=== PATIENT | female | born 1955 | race Caucasian/White ===

== ENCOUNTER 2018-04-28 00:49 | Outpatient (CLI) | payer BC, SELFPAY ==
--- NOTE | 2018-04-28 08:00 | DI.RAD_ITS ---
SYMPTOM/DIAGNOSIS: PAIN OF SACRUM, ? FX, RT HAND PAIN, M25.541 SACRUM AND COCCYX: The lower sacrum and coccyx are partially obscured by overlying stool and bowel gas. No fracture is identified. There is mild spurring at the SI joints. The hip joint spaces are well maintained. IMPRESSION: No acute abnormality. RIGHT HAND: Comparison is made with 07/16/11. There is moderate narrowing of the first metacarpal trapezium joint. There is prominent spurring. There is also mild narrowing and spurring at the scaphoid trapezium trapezoid joints. Mild degenerative changes are seen in the interphalangeal joints of the fingers. The findings have progressed when compared with the 2011 exam. IMPRESSION: Degenerative changes, greatest at the first carpal metacarpal joint.
== END 2018-04-28 01:09 ==
PROVIDERS: PCP Naturopath; Visit Provider Naturopath
DX: M53.3 Sacrococcygeal disorders, not elsewhere classified (principal); M25.541 Pain in joints of right hand; M18.11 Unilateral primary osteoarthritis of first carpometacarpal joint, right hand
CPT/HCPCS: 72220; 73130

== ENCOUNTER 2018-10-17 01:47 | Outpatient (CLI) | payer BC, SELFPAY ==
--- NOTE | 2018-10-17 07:25 | DI.COMBO_ITS ---
SYMPTOM/DIAGNOSIS: GI AND EPIGASTRIC PAIN, DIARRHEA, ? GALLSTONES, SWELLING/LUMP MID STERNUM, ? MASS OR NODULE, R22.2,R19.7,R10.13 PA AND LATERAL CHEST: The heart is normal in size. The lungs are clear. The mediastinal structures and pleura appear intact. CONCLUSION: Normal chest. No evidence of acute cardiopulmonary disease. ABDOMEN ULTRASOUND: The aorta and vena cava are intact. There is some increased echogenicity in the liver suggesting fatty infiltration. The gallbladder is normal. There are no stones or ductal dilatation. The pancreas and spleen are normal. The kidneys are unremarkable, the right kidney measures 8.9 and the left kidney, 10.5 cm. There is no evidence of abdominal free fluid. SUMMARY: Increased echogenicity in the liver would be consistent with fatty infiltration. The study is otherwise unremarkable.
== END 2018-10-17 02:07 ==
PROVIDERS: PCP Naturopath; Visit Provider Naturopath
DX: K76.0 Fatty (change of) liver, not elsewhere classified (principal); R19.7 Diarrhea, unspecified; R10.13 Epigastric pain; R22.2 Localized swelling, mass and lump, trunk
CPT/HCPCS: 71046; 76700

== ENCOUNTER 2018-11-23 00:53 | Outpatient (CLI) | payer BC, SELFPAY ==
--- NOTE | 2018-11-23 10:16 | DI.MAMMO_ITS ---
SYMPTOMS/DIAGNOSIS: SCREENING, Z12.31 MAMMOGRAMS: Mammograms were interpreted according to the usual protocol including computer analysis with CAD system, tomosynthesis and C view imaging. The breasts are heterogeneously dense. No dominant mass or clumped microcalcification is identified in either breast. Current examination is compared with the previous examinations including November 2016 and there is increased prominence of a focal area of asymmetric density projected in the retroareolar portion of the left breast on the MLO view. Additional mammographic views of this area are requested to include an MLO spot compression view of the left breast. CONCLUSION: Additional mammographic views of the left breast requested as described above. Breast ultrasound may be indicated as well depending on the results of the additional mammographic views. Category 0, breast density category C. MQSA ASSESSMENT OF FINDINGS: Incomplete: Needs additional imaging evaluation. Category 0. Patient will receive a letter notifying them of these results. Bi-RADS category C. The breasts are heterogeneously dense, which may obscure small masses.
== END 2018-11-23 01:13 ==
PROVIDERS: PCP Naturopath; Visit Provider Nurse Practitioner Women's Health
DX: Z12.31 Encounter for screening mammogram for malignant neoplasm of breast (principal); R92.8 Other abnormal and inconclusive findings on diagnostic imaging of breast
CPT/HCPCS: 77063; 77067

== ENCOUNTER 2018-12-05 00:29 | Outpatient (CLI) | payer BC, SELFPAY ==
--- NOTE | 2018-12-05 09:30 | DI.COMBO_ITS ---
SYMPTOM/DIAGNOSIS: F/U MAMMO, INCREASED PROMINENCE FOCAL AREA OF ASYMMETRIC DENSITY, LT LEFT BREAST ADDITIONAL VIEWS AND LEFT BREAST ULTRASOUND: Additional images are interpreted according to the usual protocol including tomosynthesis and 2D imaging. A mediolateral compression spot film of the left breast was obtained today. Fibroglandular densities are demonstrated. No discrete mass is seen. At ultrasound, there is no evidence of a mass or cyst. IMPRESSION: No evidence of malignancy, category 1. Yearly screening mammography is recommended. Breast density, Category B. MQSA ASSESSMENT OF FINDINGS: Negative. Category 1. Patient will receive a letter notifying them of these results. BI-RADS category B. There are scattered areas of fibroglandular density.
== END 2018-12-05 00:49 ==
PROVIDERS: PCP Naturopath; Visit Provider Nurse Practitioner Women's Health
DX: Z12.31 Encounter for screening mammogram for malignant neoplasm of breast (principal); R92.8 Other abnormal and inconclusive findings on diagnostic imaging of breast; N64.89 Other specified disorders of breast
CPT/HCPCS: 76642; 77063; 77067

== ENCOUNTER 2020-08-07 03:20 | Outpatient (CLI) | payer BC, SELFPAY ==
--- NOTE | 2020-08-07 10:00 | DI.MAMMO_ITS ---
EXAM: MG MAMMO SCREENING CLINICAL HISTORY: SCREENING, FAMILY H/O BREAST CA,Z12.31 TECHNIQUE: Bilateral full field digital CC and MLO mammographic images were obtained with 3D tomosyn thesis and utilizing computer aided detection (CAD). COMPARISON: Available for comparison. FINDINGS: Masses/Architectural Distortion: None seen. Microcalcifications: No suspicious pleomorphic-type are seen. Skin Thickening/Nipple Retraction: None. IMPRESSION: 1. No significant interval change with no specific features of malignancy noted. 2. Unless there is more urgent need, screening mammography is recommended, as per [employer] guidelines. BI-RADS Category 1 - Negative Breast Density - Category B - Scattered areas of fibroglandular density Breast density category C or D implies that the patient has dense breast tissue. Dense breast tissue is very common and is not abnormal but dense breast tissue can make it harder to find cancer on a ma mmogram. Also, dense breast tissue may increase their breast cancer risk. This information about the result of the mammogram report was provided to the patient to raise their awareness. Use this report when you speak with the patient about their risks for breast cancer, which includes their family hist ory. At that time, you may recommend for more screening tests (Ultrasound or MRI) as they might be us eful based on their risk. A negative radiographic report should not delay biopsy if a dominant or clinically suspicious mass is present. Up to ten percent of cancers are not identified on mammography. A negative report may reinforce clinical impression. Adenosis and dense breasts may obscure an underlying neoplasm. False positive reports average 6 to 10%. Patient will receive a letter notifying them of these results.
== END 2020-08-07 03:40 ==
PROVIDERS: PCP Naturopath; Visit Provider Naturopath
DX: Z12.31 Encounter for screening mammogram for malignant neoplasm of breast (principal); Z80.3 Family history of malignant neoplasm of breast
CPT/HCPCS: 77063; 77067

== ENCOUNTER 2020-10-28 01:51 | Outpatient (CLI) | payer BC, SELFPAY ==
--- NOTE | 2020-10-28 08:34 | DI.RAD_ITS ---
EXAM: XR HIP LT COMPLETE AP PELVIS CLINICAL HISTORY: LT HIP PAIN, M25.552. TECHNIQUE: 2D digital imaging was performed. COMPARISON: No exams were available for comparison FINDINGS: BONES: No acute fracture is present. No bony destructive lesion is seen. JOINTS: No dislocation present. Mild degenerative changes at the sacroiliac joints. SOFT TISSUE: Normal. IMPRESSION: Unremarkable radiographs of the left hip. Mild degenerative changes seen at the sacroiliac joints. DATA REPOSITORY: RADIATION DOSE DELIVERED:
== END 2020-10-28 02:11 ==
PROVIDERS: PCP Naturopath; Visit Provider Naturopath
DX: M25.552 Pain in left hip (principal); M53.3 Sacrococcygeal disorders, not elsewhere classified
CPT/HCPCS: 73502

== ENCOUNTER → 2021-05-28 08:49 | Outpatient (BNVA) | payer MEDICARE, OTHER, SELFPAY | PROVIDERS: PCP Naturopath; Referring Provider Naturopath; Visit Provider Physical Therapy Assistant | DX: Z12.11 Encounter for screening for malignant neoplasm of colon (principal); Z80.0 Family history of malignant neoplasm of digestive organs ==

== ENCOUNTER 2021-05-29 09:37 | Outpatient (REF) | payer MEDICARE, OTHER, SELFPAY ==
[2021-05-29 15:23] LABS: D-Dimer 556 ng/mlFEU (<500)
[2021-05-29 15:38] LABS: ALT 37 U/L (14-59); Anion Gap 9.3 mmol/L (3-11); BUN 18 mg/dL (7-18); CO2 26.7 mmol/L (21.0-32.0); CREATININE 0.9 mg/dL (0.55-1.02); Chloride 105 mmol/L (98-107); Glucose 88 mg/dL (74-106); Potassium 5.1 mmol/L (3.5-5.1); Sodium 141 mmol/L (136-145)
[2021-05-29 16:55] LABS: HCT 45.7 % (36.0-46.0); HGB 14.9 g/dL (11.2-15.7); MCH 29.3 pg (27.0-33.0); MCHC 32.6 % (32.0-36.0); MPV 10.9 fL (8.0-11.0); Platelet Count 241 10^3/uL (130-400); RBC 5.08 10^6/uL (3.93-5.22); RDW 13.2 % (11.7-14.6); RDW-SD 43.8 fL; WBC 4.35 10^3/uL (4.4-10.8)
[2021-06-01 09:25] LABS: Vitamin D 25 Total 40.4 ng/mL (30-100)
== END 2021-05-29 09:38 | disposition home or self-care (01) ==
LOC: NCHCN 09:37
PROVIDERS: PCP Nurse Practitioner Family; Visit Provider Nurse Practitioner Family
DX: E55.9 Vitamin D deficiency, unspecified (principal); K76.0 Fatty (change of) liver, not elsewhere classified; M79.605 Pain in left leg
CPT/HCPCS: 80048; 82306; 85027; 84460; 85379

== ENCOUNTER 2021-06-01 02:54 | Outpatient (CLI) | payer MEDICARE, OTHER, SELFPAY ==
[2021-06-01 10:27] LABS: Source Nasal/Nares
[2021-06-01 12:50] LABS: COVID-19 PCR Negative (Negative)
== END 2021-06-01 02:55 | disposition home or self-care (01) ==
PROVIDERS: PCP Nurse Practitioner Family; Visit Provider Surgery
DX: Z20.822 Contact with and (suspected) exposure to COVID-19 (principal); Z01.818 Encounter for other preprocedural examination
CPT/HCPCS: 87635

== ENCOUNTER 2021-06-03 10:56 | Day surgery (SDC) | payer MEDICARE, OTHER, SELFPAY ==
--- NOTE | 2021-06-03 06:56 | COLE_ITS ---
Colonoscopy Report Date of procedure: 06/03/21 Pre-op diagnosis general: Colon Cancer Screening and genetic propensity for colo n cancer Post-op diagnosis procedure note: same Procedure: Colonoscopy Surgeon: Jami Barreto Anesthesia Type: General:No Airway Estimated blood loss (mL): 0 Pathology: none sent Complications: None Disposition: same day Indications: The patient is here for Colonoscopy pre-op. Her last screening was a number of years ago. She has no family history of colon cancer. 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 She has not had any bowel habit changes. -Discussed colonoscopy bowel prep as well as the procedure. Discussed possible complications of the procedure to include bleeding, pain, perforation, missed small lesion/polyp, sore throat, aspiration and adverse reaction to the medicat ions. Questions were answered to patient?s satisfaction. No guarantees were implied or given. I spent 31 minutes in reviewing the record, seeing the patient, providing patient education, answering patient's questions and documenting in the medical record. P// Colonoscopy under sedation. Prep: Miralax/Dulcolax Retraction Time: 6 minutes Findings: normal colon Procedure Description: After informed consent was obtained the patient was taken to the procedure room and placed in a left decubitous position. Monitors were applied and a time out was done. The patients name, date of , procedure, allergies to medications and metal in their body was reviewed. The patient was then sedated. Once sedated and comfortable a rectal exam was done. External exam was normal. Internal exam revealed a normal sphincter tone and no palpable masses. The scope was then introduced and retro-flexed. No internal hemorrhoids, polyps or masses were identified on retro-flexion. The scope was then advanced to the cecum without difficulty. The ileocecal vlave and appendiceal orifice were identified. The prep was good. The scope was then slowly retracted over 6 minutes back into the rectum. There were no polyps and no diverticulosis. The scope was removed and the patient was woken up and taken back to Same day surgery in stable condition. The patient tolerated the procedure well and there were no immediate complications. Follow up: The patient should follow up in 5 years unless they develop changes in bowel habits or other new gastrointestinal complaints.
--- NOTE | 2021-06-03 06:57 | W.PM.DSUDISC ---
Discharge Plan Disposition Patient Disposition: HOME Condition: Good Discharge Details Reason For Visit: Colonoscopy Attending Provider: Jami Barreto Primary Care Provider: Becka Leonard Home Meds and New Rx's Prescriptions: Continued coenzyme Q10 [Co Q-10] 10 mg capsule 10 mg PO ONCE RF: 0 aspirin [Adult Aspirin Regimen] 81 mg tablet,delayed release (DR/EC) 81 mg PO ONCE PRNRF: 0 cholecalciferol (vitamin D3) [Vitamin D3] 400 UNIT capsule 400 unit PO DAILY RF: 0 Digestive Advantage Probio-Pre 800 million cell tablet 800 cell PO DAILY RF: 0 omega-3 fatty acids 1,000 mg capsule 1,000 mg PO DAILY RF: 0 turmeric 400 mg Capsule 400 mg PO DAILY RF: 0 Discontinued bisacodyl [Dulcolax (bisacodyl)] 5 mg tablet,delayed release (DR/EC) 5 mg PO ONCE Qty: 4 RF: 0 polyethylene glycol 3350 17 gram/dose powder 17 g PO ONCE Qty: 238 RF: 0 Discharge Instructions Additional Instructions: Findings: normal colon Follow up: 10 years Please call if you develop: fevers >101.5 Nausea or Vomiting Abdominal pain that is not transient Rectal bleeding that is more then a tbsp A hard abdomen and inability to pass gas DAY SURGERY UNIT POST ENDOSCOPY INSTRUCTIONS Instructions for everyone who is given Anesthesia: For your safety, please do the following for the next 24 Hours: a. Do not drive or operate dangerous equipment b. Do not drink alcohol beverages or use any recreational drugs for the first 24 hours or while taking pain medications. The medications in your body may have a reaction that can be dangerous. c. Do not make any important decisions or sign any important papers 1. Generally there are no restrictions on your activity after a day or so has gone by, but you may feel a bit fatigued for a few days. 2. After you arrive home you may have a light meal and return to a normal diet as you can tolerate it without feeling sick to your stomach. 3. After surgery, you may feel pain or discomfort. This should be only transient, but if it persists please contact your doctor. 4. If there are any questions regarding the findings of your procedure, please feel free to contact your doctor. 6. If you are unable to contact your doctor with a problem, contact the hospital at [phone]. 7. Continue all your regular medications unless directed otherwise. I understand the above instructions and have no questions. Signature of Patient or Responsible Adult Escort Date/Time Name of Responsible Adult Escort Signature of Nurse Date/Time Activity:: Activity as Tolerated Diet:: As Tolerated Discharge Orders Discharge Orders: Discharge Order (Routine); Ordered 06/03/21 Ordered By: Jami Barreto
--- NOTE | 2021-06-03 07:35 | W.ANESPRE ---
General Info Date of Service Date Performed: 06/03/21 Height: 5 ft 8 in Weight: 88.167 kg Body Mass Index (BMI): 29.5 Surgical Procedure: Operation Date: 06/03/21 12:05 Proposed Procedures Side Surgeon p Colonoscopy Jami Barreto MD Meds Allergies and Home Medications Allergies Allergy/AdvReac Type Severity Reaction Status Date / Time No Known Allergies Allergy Unverified 06/03/21 11:09 Home Medication Medication Instructions Recorded cholecalciferol (vitamin D3) 400 unit PO DAILY 12/03/13 [Vitamin D3] Bacillus coagulans 800 million 800 cell PO DAILY 05/07/21 cell tablet omega-3 fatty acids 1,000 mg 1,000 mg PO DAILY 05/07/21 capsule aspirin 81 mg tablet,delayed 81 mg PO ONCE PRN tab 05/28/21 release bisacodyl 5 mg tablet,delayed 5 mg PO ONCE #4 tab 05/28/21 release coenzyme Q10 10 mg capsule 10 mg PO ONCE 05/28/21 polyethylene glycol 3350 17 17 g PO ONCE #238 g 05/28/21 gram/dose oral powder turmeric 400 mg PO DAILY 06/03/21 Current Visit Medications: Current Medications Generic Name Dose Route Start Last Admin Trade Name Freq PRN Reason Stop Dose Admin Hyoscyamine Sulfate 0.125 mg 06/03/21 06:57 Hyoscyamine 0.125 Mg Sl/Oral/Chew SL DIRECTED PRN Ringer's Solution 1,000 mls @ 80 mls/hr 06/03/21 06:00 IV 06/16/21 23:59 [facility] IV Miscellaneous Supplies 1 each 06/03/21 06:00 Iv Access IV 06/16/21 23:59 DIRECTED REYNALDO Ondansetron HCl 4 mg 06/03/21 06:57 Ondansetron 4 Mg/2 Ml Vial IVP Q4H PRN PRN Nausea / Vomiting Sodium Chloride 0 ml 06/03/21 06:00 Normal Saline Flush 10 Ml Syr IV 06/16/21 23:59 PRN PRN Sodium Chloride 0 ml 06/03/21 06:00 Normal Saline 10 Ml Vial IJ 06/16/21 23:59 DIRECTED PRN Sterile Water 0 ml 06/03/21 06:00 Water,Injection,Sterile 10 Ml Vial IJ 06/16/21 23:59 DIRECTED PRN PFSH Active Problems Active Problems: Problem Status Onset Code Thyroid nodule E04.1 Screening for colon cancer Z12.11 Medical History Active Problem List Thyroid nodule (Acute) Screening for colon cancer (Acute) Medical History ? 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 Tobacco Smoking/Tobacco Use Status: Never Alcohol Alcohol Intake: current Alcohol intake frequency: 0-2 drinks per day Alcohol type: beer and hard liquor Substance Use Substance use type: does not use Vital Signs and Lab Results Lab Results Blood Type / Crossmatch: No Data to Display Complete Blood Count: White Blood Count 4.35 10^3/uL (4.4-10.8) L 05/29/21 09:10 05/29/21 Red Blood Count 5.08 10^6/uL (3.93-5.22) 05/29/21 09:10 05/29/21 Hemoglobin 14.9 g/dL (11.2-15.7) 05/29/21 09:10 05/29/21 Hematocrit 45.7 % (36.0-46.0) 05/29/21 09:10 05/29/21 Platelet Count 241 10^3/uL (130-400) 05/29/21 09:10 05/29/21 Complete Metabolic Panel: Sodium Level 141 mmol/L (136-145) 05/29/21 09:10 05/29/21 Potassium Level 5.1 mmol/L (3.5-5.1) 05/29/21 09:10 05/29/21 Chloride Level 105 mmol/L (98-107) 05/29/21 09:10 05/29/21 Carbon Dioxide Level 26.7 mmol/L (21.0-32.0) 05/29/21 09:10 05/29/21 Blood Urea Nitrogen 18 mg/dL (7-18) 05/29/21 09:10 05/29/21 Creatinine 0.9 mg/dL (0.55-1.02) 05/29/21 09:10 05/29/21 Estimated GFR/1.73 m2 >= 60.00 (mL/min/1.73m2) 05/29/21 09:10 05/29/21 Calcium Level 9.0 mg/dL (8.5-10.1) 05/29/21 09:10 05/29/21 Glucose Level 88 mg/dL (74-106) 05/29/21 09:10 05/29/21 Liver Function Panel: Alanine Aminotransferase (ALT/SGPT) 37 U/L (14-59) 05/29/21 09:10 05/29/21 Coagulation Panel: D-Dimer 556 ng/mlFEU (<500) H 05/29/21 09:10 05/29/21 Cardiac Panel: No Data to Display Arterial Blood Gas: No Data to Display Venous Blood Gas: No Data to Display Pancreas Panel: No Data to Display Thyroid Panel: No Data to Display Infectious Disease: Coronavirus (COVID-19)(PCR) Negative (Negative) 06/01/21 10:27 06/01/21 Coronavirus 2019 Source Nasal/Nares 06/01/21 10:27 06/01/21 Blood Cultures: No Data to Display Toxicology Panel: No Data to Display Imaging and Studies Imaging and Studies Stress Test Summary: Impressions: - Normal study after maximal exercise. - Low risk of cardiac events. Summary: 1. Stress ECG conclusions: The stress ECG is negative. 2. Stress: The target heart rate was achieved. The heart rate response to stress is normal. There is a normal resting blood pressure with an appropriate response to stress. The patient experienced no chest pain during stress. Exercise capacity is above normal for age. 3. Baseline ECG: Normal sinus rhythm with 1degrees AV block. Anesthesia Assessment and Plan Anesthesia History Personal History: No History of Anesthesia Complications Family History: No Family History of Anesthesia Complications Exercise Tolerance Exercise Tolerance: Metabolic Equivalents>4 Pertinent Negatives Pertinent Negatives: No Symptoms of GERD, No Major Cardiovascular Symptoms or Complaints, No Major Pulmonary Symptoms or Complaints and No History of CVA/TIA Cardiac & Pulmonary Exam Cardiac Exam: Normal S1/S2 Heart Sounds Pulmonary Exam: Clear Bilateral Breath Sounds Implantable Cardiac Device Does patient have a Pacemaker or an ICD?: No Airway Exam Known Difficult Airway: No Mallampati Class: 3 Mouth Opening: Normal (> 3cm) Thyromental Distance: Greater than 3 cm Neck Range of Motion: Limited ROM Neck Circumference: Normal Teeth Condition: Generalized Poor Dentition ASA Classification ASA Score: ASA 2 Emergency Case?: No NPO Status NPO Status: NPO Clears >2 hours, Solids >8 hours Anesthesia Plan Resuscitation Status: Full Code Anesthesia Technique: General Anesthesia Airway Planned: Natural Airway Monitors Used: Standard Monitors
[2021-06-03 11:17] VITALS: BP 116/92; PULSE 96; RESP 16; TEMP 36.9; O2SAT 98
[2021-06-03] MEDS: Lactated Ringers 1,000 ML 80 ML IV (11:43)
[2021-06-03 11:49] VITALS: BMI 29.5
[2021-06-03 12:42] VITALS: BP 125/65; PULSE 83; RESP 18; TEMP 36.1; O2SAT 97
--- NOTE | 2021-06-03 13:09 | W.ANESPOSTOP ---
Postoperative Evaluation Date, Time and Location Date Performed: 06/03/21 Time Performed: 12:42 Patient Location: Day Surgery Unit Vital Signs Most Recent Imported Vital Signs: Most Recent Vital Signs Temp Pulse Resp BP Pulse Ox 36.1 C L 83 18 125/65 97 06/03/21 12:42 06/03/21 12:42 06/03/21 12:42 06/03/21 12:42 06/03/21 12:42 Pain Score Most Recent Pain Score: Most Recent Pain Score Pain Level 0 06/03/21 12:42 Assessment Mental Status: Awake (Alert & Oriented to Patient Baseline) Airway and Respiratory Function: Patent airway with normal (patient baseline) respiratory exam Cardiovascular Function: Hemodynamically Stable Hydration Status: Adequately Hydrated Nausea & Vomiting: No Nausea or Vomiting Pain: Pt. Denies Any Pain Peripheral Nerve Block: Patient did not receive a nerve block
[2021-06-03 13:10] VITALS: BP 122/83; PULSE 68; RESP 18; TEMP 36.2; O2SAT 98
== END 2021-06-03 13:30 | disposition home or self-care (01) ==
LOC: SUR 10:57
PROVIDERS: PCP Nurse Practitioner Family; Visit Provider Surgery
PROC: 0DJD8ZZ Inspection of Lower Intestinal Tract, Via Natural or Artificial Opening Endoscopic (ICD-10-PCS; CPT 45378; principal; 2021-06-03 12:00)
DX: Z12.11 Encounter for screening for malignant neoplasm of colon (principal); Z15.09 Genetic susceptibility to other malignant neoplasm
CPT/HCPCS: G0121

== ENCOUNTER 2021-08-10 01:59 | Outpatient (CLI) | payer MEDICARE, OTHER, SELFPAY ==
--- NOTE | 2021-08-10 06:45 | DI.MAMMO_ITS ---
Exam(s) MAMMO SCREENING EXAM: MAMMO SCREENING CLINICAL HISTORY: screening,Z12.39. TECHNIQUE: Bilateral full field digital CC and MLO mammographic images were obtained with 3D tomosyn thesis and utilizing computer aided detection (CAD). COMPARISON: Prior mammograms were reviewed, the most recent being July 2020. Very strong family history here. Mother and sisters all diagnosed with breast cancer. FINDINGS: There has been no significant change in the appearance and distribution of the fibroglandular tissue. No new significant radiograph findings in the right breast The left breast on 3D cc imaging there is an asymmetric density-possible nodule located 2 cm in from the nipple, measuring 4 by 2.5 millimeters. Spot compression view ultrasound recommended. There is no significant architectural distortion nor skin thickening-retraction. IMPRESSION: No radiographic evidence of malignancy in right breast Possible left breast nodule, as described above. Spot compression view and ultrasound recommended BI-RADS Category 0 - Assessment Incomplete: Need additional imaging evaluation Breast Density - Category B - Scattered areas of fibroglandular density Breast density Category C or D implies that the patient has dense breast tissue. Dense breast tissue can make it harder to find cancer on a mammogram. Dense breast tissue is also associated with an incr eased risk of breast cancer. This information about the result of the mammogram report was provided to the patient to raise their awareness. Use this report when you speak with the patient about their risks for breast cancer, which includes their family history. At that time, you may recommend additional screening tests (Ultrasoun d or MRI) as these tests may add significant information. A negative radiographic report should not delay biopsy if a dominant or clinically suspicious mass is present. Up to ten percent of cancers are not identified on mammography. A negative report may reinforce clinical impression. Adenosis and dense breasts may obscure an underlying neoplasm. False positive reports average 6 to 10%. Patient will receive a letter notifying them of these results.
== END 2021-08-10 02:19 ==
PROVIDERS: PCP Nurse Practitioner Family; Visit Provider Nurse Practitioner Family
DX: Z12.31 Encounter for screening mammogram for malignant neoplasm of breast (principal); R92.8 Other abnormal and inconclusive findings on diagnostic imaging of breast
CPT/HCPCS: 77063; 77067

== ENCOUNTER 2021-08-17 14:42 | Outpatient (REF) | payer MEDICARE, OTHER, SELFPAY ==
[2021-08-17 21:52] LABS: FREE T4 0.96 ng/dL (0.76-1.46); TSH 2.25 uIU/mL (0.36-3.74)
== END 2021-08-17 14:43 | disposition home or self-care (01) ==
LOC: NCHCN 14:42
PROVIDERS: PCP Nurse Practitioner Family; Visit Provider Nurse Practitioner Family
DX: E04.1 Nontoxic single thyroid nodule (principal)
CPT/HCPCS: 84439; 84443

== ENCOUNTER 2021-12-11 08:58 | Outpatient (CLI) | payer MEDICARE, OTHER, SELFPAY ==
--- NOTE | 2021-12-11 08:30 | DI.RAD_ITS ---
Exam(s) XR KNEE LT 3V AP,LAT,JAMIE EXAM: XR KNEE LT 3V AP,LAT,JAMIE CLINICAL HISTORY: LEFT KNEE PAIN. TECHNIQUE: 2D digital imaging was performed. Three views. COMPARISON: CR XR KNEE RT 3V AP,LAT,JAMIE from 12/11/2021 FINDINGS: BONES: No acute fracture is present. No bony destructive lesion is seen. JOINTS: The knee is normally aligned. No joint effusion is seen. There is mild periarticular spurring . Joint spaces are well maintained. SOFT TISSUE: Normal. IMPRESSION: Mild degenerative changes. DATA REPOSITORY: RADIATION DOSE DELIVERED:
--- NOTE | 2021-12-11 08:30 | DI.RAD_ITS ---
Exam(s) XR KNEE RT 3V AP,LAT,JAMIE EXAM: XR KNEE RT 3V AP,LAT,JAMIE CLINICAL HISTORY: RIGHT KNEE PAIN. TECHNIQUE: 2D digital imaging was performed. Three views. COMPARISON: No exams were available for comparison FINDINGS: BONES: No acute fracture is present. No bony destructive lesion is seen. JOINTS: The knee is normally aligned. No joint effusion is seen. Joint spaces are well maintained. There is minimal periarticular spurring. SOFT TISSUE: Normal. IMPRESSION: Minimal degenerative changes. DATA REPOSITORY: RADIATION DOSE DELIVERED:
== END 2021-12-11 08:59 | disposition home or self-care (01) ==
LOC: DIORS 08:58
PROVIDERS: PCP Nurse Practitioner Family; Referring Provider Nurse Practitioner Family; Visit Provider Physician Assistant
DX: M22.2X1 Patellofemoral disorders, right knee; M22.2X2 Patellofemoral disorders, left knee
CPT/HCPCS: 73562; 99215

== ENCOUNTER 2022-03-16 22:02 | Emergency (ER) | payer MEDICARE, OTHER, SELFPAY ==
[2022-03-16 22:06] VITALS: BP 145/74; PULSE 79; RESP 18; TEMP 36.6; O2SAT 96
--- NOTE | 2022-03-16 22:56 | W.ED.GENAD ---
Discharge Plan Disposition Patient Disposition: HOME Condition: Good Discharge Details Clinical Impression: Vision disturbance Primary Care Provider: Becka Leonard ED Provider: Milton Denton [place] Meds and New Rx's Prescriptions: No Action coenzyme Q10 [Co Q-10] 10 mg capsule 10 mg PO ONCE aspirin [Adult Aspirin Regimen] 81 mg tablet,delayed release (DR/EC) 81 mg PO ONCE PRN cholecalciferol (vitamin D3) [Vitamin D3] 400 UNIT capsule 400 unit PO DAILY Digestive Advantage Probio-Pre 800 million cell tablet 800 cell PO DAILY omega-3 fatty acids 1,000 mg capsule 1,000 mg PO DAILY turmeric 400 mg Capsule 400 mg PO DAILY Discharge Instructions Additional Instructions: You were seen for visual disturbance of the left eye without eye pain and without neurologic change. Your eye exam here and limited retinal exam look okay but she will need a thorough check by an quality systems specialist tomorrow. You should return to the ED if you have loss of vision, severe headache, neurologic change, other concerns. Referrals: [facility] [Outside] Discharge Data Discharge Date/Time-TO BE ENTERED AT DEPARTURE: 03/16/22 23:32 Medical Decision Making Patient presenting to ED with left eye lateral visual field changes involving seeing white lights. She has mild headache. There are no associated neurologic deficits. She has no visual field deficit. She has no change in her vision. Limited retinal exam is unremarkable. Do not feel this is likely stroke related as she is having positive visual finding not loss of visual finding. Consider peripheral retinal detachment she needs prompt follow-up with her quality systems specialist tomorrow. If unable to obtain follow-up we will have her contact [facility] for urgent follow-up appointment. Return precautions discussed. HPI General Mode of arrival: ambulatory. Date/Time Provider Initiated Documentation: 03/16/22 22:03. Limitations to Documentation: no limitations. Information obtained by: patient and RN notes reviewed. HPI Narrative: Patient presents to ED with complaint of white light in her lateral peripheral vision involving her left eye since this afternoon. She has no eye pain. She has noticed no change in her vision. She does have mild headache in the frontal area though nothing severe. 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 She has no other neurologic symptoms. She has suffered no trauma to the eye. There is been no drainage or discharge. Related Data Home Medications Medication Instructions Recorded Confirmed cholecalciferol (vitamin D3) 10 400 unit PO DAILY 12/03/13 03/16/22 mcg (400 unit) capsule (Vitamin D3) Bacillus coagulans 800 million 800 cell PO DAILY 05/07/21 03/16/22 cell tablet (Digestive Advantage Probiotics-Prebiotic) omega-3 fatty acids 1,000 mg 1,000 mg PO DAILY 05/07/21 03/16/22 capsule aspirin 81 mg tablet,delayed 81 mg PO ONCE PRN 05/28/21 03/16/22 release (Adult Aspirin Regimen) coenzyme Q10 10 mg capsule (Co 10 mg PO ONCE 05/28/21 03/16/22 Q-10) turmeric 400 mg capsule 400 mg PO DAILY 06/03/21 12/11/21 Allergies Allergy/AdvReac Type Severity Reaction Status Date / Time No Known Allergies Allergy Unverified 03/16/22 22:09 General Stated Complaint: EyeProblem MICH: 4 Review of Systems Narrative: 11/28 Review of Systems completed and is negative except as stated above in HPI (Systems reviewed: Const, Resp, CV, GI, Neuro) PFSH All Active Problems Vision disturbance (Acute) Patellofemoral syndrome of both knees (Acute) Thyroid nodule (Acute) Screening for colon cancer (Acute) Medical History 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 Low back pain Varicose veins of anus or rectum Vitamin D deficiency Surgical History History of colonoscopy (~05/2021) Family History Mother Personal history of malignant neoplasm breast 50s Sister Personal history of malignant neoplasm breast, 40s Other Mental disorder Seizure disorder Social History Smoking/Tobacco Use Status: Never Smoking risk assessment performed?: Yes Alcohol Intake: current Alcohol Intake frequency: a few times a week Alcohol type: beer and hard liquor Drug use: Never Substance use type: does not use Do you feel safe at home: Yes Do you feel safe in your relationship?: Yes Exam Narrative Exam Narrative: Const: WDWN female in NAD. HEENT: NC/AT. Normal facial exam. Eyes: Normal conjunctiva and sclera. PERRL and EOMI. VF in tact to confrontaiton. Limited retinal exam with ophthalmoscope without obvious abnormalities. Neck: Supple. Trachea midline. Lungs: Normal respiratory effort Neuro: A+O x 3. Normal speech, mentation, gait. Cranial nerves II - XII grossly intact. No gross motor or sensory deficit. Ext: No C/C/E. Skin: Warm and dry without rash. Course Vital Signs Vital signs: Vital Signs Temperature 97.8 F 03/16/22 22:06 Pulse 79 03/16/22 22:06 Respiratory Rate 18 03/16/22 22:06 Blood Pressure 145/74 H 03/16/22 22:06 Pulse Oximetry 96 03/16/22 22:06 Temperature 97.8 F 03/16/22 22:06 Temperature Source Oral 03/16/22 22:06 Pulse 79 03/16/22 22:06 Respiratory Rate 18 03/16/22 22:06 Respiratory Effort Non-Labored 03/16/22 22:10 Blood Pressure 145/74 H 03/16/22 22:06 Pulse Oximetry 96 03/16/22 22:06 Pain Level 6 03/16/22 22:06 PAWSS Have you Been Recently Intoxicated or Drunk Within the Last 30 days?: No Have you Ever Experienced Previous Episodes of Alcohol Withdrawal?: No Have you ever Experienced Withdrawal Seizures?: No Have you ever Experienced Delirium Tremens(DT)s?: No Have you ever undergone Alcohol Rehabilitation Treatment (i.e, inpt ot outpatient treatment programs)?: No Have you ever Experienced Blackouts?: No Have you ever Combined Alcohol with other Downers within the last 90 days?: No Have you ever Combined Alcohol with any other Substance of Abuse during the last 90 days?: No Positive Blood Alcohol level on Presentation? [PCS.BAL]: No Evidence of Increased Autonomic Activity (i.e. HR>120, tremor, sweating, agitation, nausea)?: No Result: 0
[2022-03-19 11:21] LABS: COVID-19 RT-PCR UVMMC Result Negative (Negative)
== END 2022-03-16 23:32 | disposition home or self-care (01) ==
PROVIDERS: Family Medicine; Emergency Provider Emergency Medicine; PCP Nurse Practitioner Family
DX: H53.8 Other visual disturbances (principal); Z20.822 Contact with and (suspected) exposure to COVID-19
CPT/HCPCS: 99282; U0003; U0005

== ENCOUNTER 2022-03-23 20:05 | Outpatient (REF) | payer MEDICARE, OTHER, SELFPAY ==
[2022-03-23 19:13] LABS: HGB 14.8 g/dL (11.2-15.7); MCH 29.7 pg (27.0-33.0); MCHC 33.6 % (32.0-36.0); MCV 88 fL (80-95); MPV 10.5 fL (8.0-11.0); Platelet Count 264 10^3/uL (130-400); RBC 4.99 10^6/uL (3.93-5.22); RDW 13.1 % (11.7-14.6); RDW-SD 42.3 fL; WBC 6.32 10^3/uL (4.4-10.8)
[2022-03-23 19:51] LABS: ALT 33 U/L (14-59); AST 23 U/L (15-37); Albumin 3.7 g/dL (3.4-5.0); Alkaline Phosphatase 101 U/L (46-116); Anion Gap 10.3 mmol/L (3-11); BUN 22 mg/dL (7-18); Bilirubin, Total 0.3 mg/dL (0.2-1.0); CO2 25.7 mmol/L (21.0-32.0); Calcium 8.8 mg/dL (8.5-10.1); Calculated LDL 130 mg/dL (<100); Chloride 103 mmol/L (98-107); Cholesterol 227 mg/dL (<200); Estimated GFR 62.13 (mL/min/1.73m2); Glucose 110 mg/dL (74-106); HDL Cholesterol 69 mg/dL (40-60); Potassium 4.3 mmol/L (3.5-5.1); Sodium 139 mmol/L (136-145); Total Protein 6.6 g/dL (6.4-8.2); Triglyceride 142 mg/dL (<150)
== END 2022-03-23 20:06 | disposition home or self-care (01) ==
LOC: NCHCN 20:05
PROVIDERS: PCP Nurse Practitioner Family; Visit Provider Nurse Practitioner Family
DX: K76.0 Fatty (change of) liver, not elsewhere classified (principal); I83.90 Asymptomatic varicose veins of unspecified lower extremity
CPT/HCPCS: 80053; 80061; 85027

== ENCOUNTER → 2022-07-16 07:59 | Outpatient (BNVA) | payer MEDICARE, OTHER, SELFPAY | PROVIDERS: PCP Nurse Practitioner Family; Referring Provider Nurse Practitioner Family; Visit Provider Physician Assistant | DX: M22.2X1 Patellofemoral disorders, right knee (principal); M22.2X2 Patellofemoral disorders, left knee; M23.91 Unspecified internal derangement of right knee | CPT/HCPCS: 99214 ==

== ENCOUNTER 2022-08-25 02:45 | Outpatient (CLI) | payer MEDICARE, SELFPAY ==
--- NOTE | 2022-08-25 08:06 | DI.MAMMO_ITS ---
Exam(s) MAMMO SCREENING EXAM: MAMMO SCREENING CLINICAL HISTORY: SCREENING FOR BREAST CANCER Z12.39 TECHNIQUE: Bilateral full field digital CC and MLO mammographic images were obtained with 3D tomosyn thesis and utilizing computer aided detection (CAD). COMPARISON: Available for comparison. FINDINGS: Masses/Architectural Distortion: None seen. Microcalcifications: No suspicious pleomorphic-type are seen. Skin Thickening/Nipple Retraction: None. IMPRESSION: 1. No significant interval change with no specific features of malignancy noted. 2. Unless there is more urgent need, screening mammography is recommended, as per [place] [employer] guidelines. BI-RADS Category 1 - Negative Breast Density - Category B - Scattered areas of fibroglandular density Breast density category C or D implies that the patient has dense breast tissue. Dense breast tissue is very common and is not abnormal but dense breast tissue can make it harder to find cancer on a ma mmogram. Also, dense breast tissue may increase their breast cancer risk. This information about the result of the mammogram report was provided to the patient to raise their awareness. Use this report when you speak with the patient about their risks for breast cancer, which includes their family hist ory. At that time, you may recommend for more screening tests (Ultrasound or MRI) as they might be us eful based on their risk. A negative radiographic report should not delay biopsy if a dominant or clinically suspicious mass is present. Up to ten percent of cancers are not identified on mammography. A negative report may reinforce clinical impression. Adenosis and dense breasts may obscure an underlying neoplasm. False positive reports average 6 to 10%. Patient will receive a letter notifying them of these results.
== END 2022-08-25 03:05 ==
PROVIDERS: PCP Nurse Practitioner Family; Visit Provider Nurse Practitioner Family
DX: Z12.31 Encounter for screening mammogram for malignant neoplasm of breast (principal)
CPT/HCPCS: 77063; 77067

== ENCOUNTER 2022-08-25 13:49 | Outpatient (REF) | payer MEDICARE, SELFPAY ==
[2022-08-27 11:51] LABS: COVID-19 RT-PCR UVMMC Result Negative (Negative)
== END 2022-08-25 13:50 | disposition home or self-care (01) ==
LOC: LBN 13:49
PROVIDERS: PCP Nurse Practitioner Family; Visit Provider Physician Assistant Medical
DX: Z20.822 Contact with and (suspected) exposure to COVID-19 (principal); R05.8 Other specified cough
CPT/HCPCS: U0003

== ENCOUNTER 2022-08-27 19:04 | Emergency (ER) | payer MEDICARE, SELFPAY ==
[2022-08-27 19:08] VITALS: BP 134/96; PULSE 72; RESP 16; TEMP 36.3; O2SAT 96
[2022-08-27 19:14] VITALS: RESP 16
--- NOTE | 2022-08-27 19:31 | ED.GENADUL_ITS ---
Discharge Plan Disposition Patient Disposition: Home Condition: Good Discharge Details Clinical Impression: Post-operative pain Primary Care Provider: Becka Leonard ED Provider: Claudia Thomas Home Meds and New Rx's Prescriptions: Continued coenzyme Q10 [Co Q-10] 10 mg capsule 10 mg PO ONCE aspirin [Adult Aspirin Regimen] 81 mg tablet,delayed release (DR/EC) 81 mg PO ONCE PRN cholecalciferol (vitamin D3) [Vitamin D3] 400 UNIT capsule 400 unit PO DAILY Digestive Advantage Probio-Pre 800 million cell tablet 800 cell PO DAILY omega-3 fatty acids 1,000 mg capsule 1,000 mg PO DAILY turmeric 400 mg Capsule 400 mg PO DAILY Discharge Instructions Additional Instructions: Your surgical incisions appear to be healing well. At this time, your exam is not consistent with a blood clot. Pain with a blood clot is typically more in the back of the leg and would not be this soon from the time of surgery. However, as we discussed I cannot completely rule this out without formal ultrasound. I do encourage you to follow-up closely with your surgical team as they may want more formal testing and to begin anticoagulation as we discussed. Please continue with the aspirin as previously advised. Please continue with elevation of your lower extremity swelling is likely increased fluid in the leg. You may continue with the wrap that is currently placed as was advised by your surgical team. If you develop pain in the back of the leg, sensation changes, increased pain, fever/chills, or other new/worsening symptom please seek care urgently once again. Otherwise, please call your surgical team to ensure close follow up and further testing as indicated. Referrals: Becka Leonard [Primary Care Provider] - Discharge Data Discharge Date/Time-TO BE ENTERED AT DEPARTURE: 08/27/22 19:40 Medical Decision Making Patient is a pleasant 66 year old female presenting today with c/c of left leg swelling. She underwent vascular surgery yesterday at [facility]. She states that she had surgery for varicose veins, is on ASA currently. Was advised that she could be on formal anticoagulation but decision was made to not do this post operatively. She states that this afternoon she noted that her leg felt more swollen than yestreday and wanted to have her leg assessed. Is supposed to rem ove her dressings tomorrow. No fevers/chills. No increase in pain. No SOB, CP. No increased pain. On exam, patient appears nontoxic. She has no tachycardia or hypoxemia. Exam of the LLE is without evidence of infection. Wounds appear to be healing well. She has some surrounding ecchymosis but no erythema, warmth, drainage. No calf pain, intact neurovascular exam. No pain with movement of joints. No posterior or medial pain. No sigfnicant swelling is appreciated. Patient and I discussed likely swelling associated with postoperative period. I do not see evidence of infection or DVT at this time. We discussed formal testing. At this time, 24 hours s/p surgery, D-dimer will be falsely elevated. We do not have US available at this time. She and I discussed that, while there is no evidence at this time for DVT, I cannot completely rule this out without formal US. Offered to reach out ot her surgical team, and encouraged that she do the same, but she feels reassured and would like to return home. She and I discussed rreturn precautions. Reiterated that she follow her postoperative instructions. Encouraged that she elevate her leg as much as possible. Will apply SAHRA wraps as well. Return precautions discussed. All of her quesitons and concerns were addressed, she is in agreement with this plan. HPI General Date/Time Provider Initiated Documentation: 08/27/22 19:06 . Limitations to Documentation: no limitations . Information obtained by: patient and RN notes reviewed . History of Present Illness 66 year old F presents to the emergency department with the chief complaint of left leg pain in the postoperative period, described as mild, with intensity rated at 2. Quality is described as other (feels, swollen), and is localized to the left and lower extremity. Patient started experiencing this hour(s) and it has been constant. No relieving factors improve symptom(s), No exacerbating factors reported . Patient notes no other symptoms.. Patient did receive the following treatments prior to arrival, none Related Data Home Medications Medication Instructions Recorded Confirmed cholecalciferol (vitamin D3) 10 400 unit PO DAILY 12/03/13 08/27/22 mcg (400 unit) capsule (Vitamin D3) Bacillus coagulans 800 million 800 cell PO DAILY 05/07/21 08/27/22 cell tablet (Digestive Advantage Probiotics-Prebiotic) omega-3 fatty acids 1,000 mg 1,000 mg PO DAILY 05/07/21 08/27/22 capsule aspirin 81 mg tablet,delayed 81 mg PO ONCE PRN 05/28/21 08/27/22 release (Adult Aspirin Regimen) coenzyme Q10 10 mg capsule (Co 10 mg PO ONCE 05/28/21 08/27/22 Q-10) turmeric 400 mg capsule 400 mg PO DAILY 06/03/21 08/27/22 Allergies Allergy/AdvReac Type Severity Reaction Status Date / Time No Known Allergies Allergy Unverified 08/27/22 19:12 General Stated Complaint: Vascular MICH: 3 Review of Systems Constitutional Constitutional: Reports as per HPI, Denies chills, Denies fever(s) and Denies weakness Cardiovascular Cardiovascular: Reports as per HPI Respiratory Respiratory: Reports as per HPI Musculoskeletal Musculoskeletal: Reports as per HPI and Denies tingling Integumentary/Breasts Skin/Breast: Reports as per HPI and Denies rash Neurologic Neurologic: Reports as per HPI, Denies tingling, Denies paresthesias and Denies weakness PFSH All Active Problems (Updated 08/27/22 @ 19:32 by ARACELIS Diaz) Post-operative pain (Acute) Internal derangement of right knee (Acute) Patellofemoral syndrome of both knees (Acute) Thyroid nodule (Acute) Screening for colon cancer (Acute) Medical History 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 Low back pain Varicose veins of anus or rectum Vitamin D deficiency Surgical History History of colonoscopy (~05/2021) Family History Mother Personal history of malignant neoplasm breast 50s Sister Personal history of malignant neoplasm breast, 40s Other Mental disorder Seizure disorder Social History Smoking/Tobacco Use Status: Never Smoking risk assessment performed?: Yes Alcohol Intake: current Alcohol Intake frequency: a few times a week Alcohol type: beer and hard liquor Drug use: Never Substance use type: does not use Do you feel safe at home: Yes Do you feel safe in your relationship?: Yes Exam Const General: cooperative, healthy appearing, comfortable, no acute distress, well developed and well groomed Nutritional Appearance: average body habitus and well nourished Orientation: alert and awake Resp Effort & Inspection: normal respiratory effort, able to speak in complete sentences and no respiratory distress Cardio Rate: regular rate Rhythm: regular rhythm Skin General skin exam: ecchymosis Wounds: wounds noted (surgical wounds with associated ecchymosis) Neuro General: patient alert and patient awake Cognition: normal cognition Speech: speech normal Gait: normal gait Motor: muscle tone normal throughout Sensory Exam: no sensory deficits noted Extrem Upper/lower leg/hip images: 1. Several incisions, covered with adhesive strips, slightly swollen. Eccymosis around these arreas. Calf is soft and nontender. No pain in posterior ot medial thigh. All are soft. 2+ distal pulses. Intact capillary rrefill. Full ROM of ankle, on pain with dorsiflexion or plantar flexion. No surrounding eerythema, warmth or drainage from the wounds. Psych Appearance: grossly normal and well kempt Mental Status: mental status grossly normal Speech and Movement: speech and movement normal Course Vital Signs Vital signs: Vital Signs Temperature 36.3 C L 08/27/22 19:08 Pulse 72 08/27/22 19:08 Respiratory Rate 16 08/27/22 19:08 Blood Pressure 134/96 H 08/27/22 19:08 Pulse Oximetry 96 08/27/22 19:08 Temperature 36.3 C L 08/27/22 19:08 Temperature Source Temporal Artery Scan 08/27/22 19:08 Pulse 72 08/27/22 19:08 Respiratory Rate 16 08/27/22 19:14 Respiratory Effort Normal 08/27/22 19:14 Respiratory Depth Normal 08/27/22 19:14 Respiratory Pattern Normal 08/27/22 19:14 Blood Pressure 134/96 H 08/27/22 19:08 Blood Pressure Position Supine 08/27/22 19:08 Pulse Oximetry 96 08/27/22 19:08 Oxygen Delivery Method Room Air 08/27/22 19:08 Oxygen Flow Rate 0 08/27/22 19:08 Pain Level 2 08/27/22 19:08
== END 2022-08-27 19:40 | disposition home or self-care (01) ==
PROVIDERS: Emergency Provider Physician Assistant; PCP Nurse Practitioner Family
DX: G89.18 Other acute postprocedural pain (principal)
CPT/HCPCS: 99282

== ENCOUNTER 2022-12-10 12:52 | Outpatient (REF) | payer MEDICARE, SELFPAY ==
[2022-12-10 17:00] LABS: TSH (W/Ref FT4) 2.92 uIU/mL (0.36-3.74)
[2022-12-10 17:38] LABS: Hemoglobin A1C 5.4 % (<5.7)
== END 2022-12-10 12:53 | disposition home or self-care (01) ==
LOC: NCHCN 12:52
PROVIDERS: PCP Nurse Practitioner Family; Visit Provider Nurse Practitioner Family
DX: E04.2 Nontoxic multinodular goiter (principal); R73.09 Other abnormal glucose
CPT/HCPCS: 83036; 84443

== ENCOUNTER → 2023-01-31 09:59 | Outpatient (BNVA) | payer MEDICARE, SELFPAY | PROVIDERS: PCP Nurse Practitioner Family; Referring Provider Nurse Practitioner Family; Visit Provider Student in an Organized Health Care Education/Training Program | DX: M22.2X1 Patellofemoral disorders, right knee (principal); M22.2X2 Patellofemoral disorders, left knee; M23.91 Unspecified internal derangement of right knee | CPT/HCPCS: 99213 ==

== ENCOUNTER → 2023-09-06 04:01 | Outpatient (CLI) | payer MEDICARE, SELFPAY ==
--- NOTE | 2023-09-06 | DI.MAMMO_ITS ---
Exam(s) MAMMO SCREENING EXAM: MAMMO SCREENING CLINICAL HISTORY: SCREENING,Z12.39,GENETIC SUSCEPTIBILITY TO MAL NEOPLASM BREAST. TECHNIQUE: Bilateral full field digital CC and MLO mammographic images were obtained with 3D tomosyn thesis and utilizing computer aided detection (CAD). COMPARISON: Prior mammograms were reviewed. FINDINGS: There has been no significant change in the appearance and distribution of the fibroglandular tissue. There are no new spiculated masses nor malignant appearing microcalcification groups. There is no significant architectural distortion nor skin thickening-retraction. IMPRESSION: No radiographic evidence of malignancy. BI-RADS Category 1 - Negative Breast Density - Category B - Scattered areas of fibroglandular density Breast density Category C or D implies that the patient has dense breast tissue. Dense breast tissue can make it harder to find cancer on a mammogram. Dense breast tissue is also associated with an incr eased risk of breast cancer. This information about the result of the mammogram report was provided to the patient to raise their awareness. Use this report when you speak with the patient about their risks for breast cancer, which includes their family history. At that time, you may recommend additional screening tests (Ultrasoun d or MRI) as these tests may add significant information. A negative radiographic report should not delay biopsy if a dominant or clinically suspicious mass is present. Up to ten percent of cancers are not identified on mammography. A negative report may reinforce clinical impression. Adenosis and dense breasts may obscure an underlying neoplasm. False positive reports average 6 to 10%. Patient will receive a letter notifying them of these results.
== END ==
PROVIDERS: PCP Nurse Practitioner Family; Visit Provider Nurse Practitioner Family
DX: Z12.31 Encounter for screening mammogram for malignant neoplasm of breast (principal)
CPT/HCPCS: 77063; 77067

== ENCOUNTER 2023-11-05 20:01 | Emergency (ER) | payer MEDICARE, SELFPAY ==
[2023-11-05 20:10] VITALS: BP 146/124; PULSE 69; RESP 18; TEMP 36.6; O2SAT 98
--- NOTE | 2023-11-05 20:22 | ED.GENADUL_ITS ---
Discharge Plan Disposition Patient Disposition: Home Condition: Stable Discharge Details Clinical Impression: Postoperative wound dehiscence Primary Care Provider: Becka Leonard ED Provider: Sugar Chaudhari Home Meds and New Rx's Prescriptions: No Action aspirin [Adult Aspirin Regimen] 81 mg tablet,delayed release (DR/EC) 81 mg PO ONCE PRN Discharge Instructions Additional Instructions: please follow up with your surgeon on Tuesday, inform them that you have DEHISCENCE OF THE SURGICAL INCISION OF YOUR RIGHT EYELID apply erythromycin ointment three times daily HPI General Date/Time Provider Initiated Documentation: 11/05/23 20:04 . Limitations to Documentation: no limitations . Information obtained by: patient . HPI Narrative: 67-year-old female with past medical history of recent surgical blepharoplasty and skin cancer removal presents for evaluation of wound. Reports that she was seen on Tuesday and had her right eyelid stitches ripped out and she states that this was very painful. She states that she was not seen by the physician, but someone also was evaluating her skin cancers I did this. She states that today she noticed the wound was open. She denies any drainage from this area. She reports that there is some burning around the area. Denies any eye pain or vision change. Denies any fever. Related Data Home Medications Medication Instructions Recorded Confirmed aspirin 81 mg tablet,delayed 81 mg PO ONCE PRN 05/28/21 11/05/23 release (Adult Aspirin Regimen) Allergies Allergy/AdvReac Type Severity Reaction Status Date / Time No Known Allergies Allergy Unverified 11/05/23 20:14 General Stated Complaint: EyeProblem MICH: 3 Exam Narrative Exam Narrative: Review of Systems: All systems reviewed & are unremarkable except as noted in HPI and below Well-developed, no acute distress Bilateral eyebrows with suture in place, left eyelid there is a small protrusion of blue suture thread in the eyelid crease upper On the right eyelid the suture is not present, there is some mild erythema, the surgical incision is dehisced, there is granulation tissue in the bed. No overt signs of infection PERRL, normal conjunctiva RRR Unlabored respiratory effort Nondistended abdomen Extremities w/o deformity, no cyanosis, no edema No rashes or lesions. no focal neurologic deficits Appropriate mood and affect Course Vital Signs Vital signs: Vital Signs Temperature 36.6 C 11/05/23 20:10 Pulse 69 11/05/23 20:10 Respiratory Rate 18 11/05/23 20:10 Blood Pressure 146/124 H 11/05/23 20:10 Pulse Oximetry 98 11/05/23 20:10 Temperature 36.6 C 11/05/23 20:10 Temperature Source Skin 11/05/23 20:10 Pulse 69 11/05/23 20:10 Respiratory Rate 18 11/05/23 20:10 Respiratory Effort Normal 11/05/23 20:13 Blood Pressure 146/124 H 11/05/23 20:10 Blood Pressure Position Sitting 11/05/23 20:10 Pulse Oximetry 98 11/05/23 20:10 Oxygen Delivery Method Room Air 11/05/23 20:10 Oxygen Flow Rate 0 11/05/23 20:10 Medical Decision Making Emergent evaluation of postoperative wound. The right eyelid has dehisced and it is open. There is granulation tissue present in the bed without obvious signs of infection though there is some increased erythema of the right upper lid in comparison to the left. The patient has not contacted her physician regarding this wound. She has erythromycin ointment at home. I have advised that she start to apply this to the area 3 times daily. At this time there is no indication for emergent closure of this wound. I advised that she contact her surgeon as soon as possible for follow-up and reevaluation of this postoperative process. 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
== END 2023-11-05 20:27 | disposition home or self-care (01) ==
PROVIDERS: Emergency Provider Emergency Medicine; PCP Nurse Practitioner Family
DX: T81.31XA Disruption of external operation (surgical) wound, not elsewhere classified, initial encounter (principal); L53.9 Erythematous condition, unspecified; Z79.82 Long term (current) use of aspirin
CPT/HCPCS: 99282

== ENCOUNTER → 2024-02-21 00:53 | Outpatient (CLI) | payer MEDICARE, SELFPAY ==
--- NOTE | 2024-02-21 | DI.RAD_ITS ---
Exam(s) XR ANKLE LT COMPLETE EXAM: XR ANKLE LT COMPLETE CLINICAL HISTORY: PAIN LT ANKLE, M25.572 TECHNIQUE: 2D digital imaging was performed. Three views. COMPARISON: No exams were available for comparison FINDINGS: BONES: No acute fracture is present. No bony destructive lesion is seen. Heel spurs. JOINTS:The ankle mortise is normally aligned. No significant joint space narrowing. SOFT TISSUE: Normal. IMPRESSION: Heel spurs. DATA REPOSITORY: RADIATION DOSE DELIVERED:
--- NOTE | 2024-02-21 | DI.RAD_ITS ---
Exam(s) XR FOOT LT COMPLETE EXAM: XR FOOT LT COMPLETE CLINICAL HISTORY: PAIN LT FOOT, M79.672. TECHNIQUE: 2D digital imaging was performed. Three views. COMPARISON: No exams were available for comparison FINDINGS: BONES: No acute fracture is present. No bony destructive lesion is seen. Heel spurs. JOINTS: No dislocation present. Minimal degenerative changes. Plantar arch is maintained. SOFT TISSUE: Normal. IMPRESSION: Heel spurs. DATA REPOSITORY: RADIATION DOSE DELIVERED:
== END ==
PROVIDERS: PCP Nurse Practitioner Family; Visit Provider Nurse Practitioner Family
DX: M79.672 Pain in left foot (principal); M25.572 Pain in left ankle and joints of left foot; M77.32 Calcaneal spur, left foot
CPT/HCPCS: 73610; 73630

== ENCOUNTER 2024-03-02 00:37 | Outpatient (CLI) | payer MEDICARE, SELFPAY ==
--- NOTE | 2024-03-02 | DI.RAD_ITS ---
Exam(s) XR HIP LT COMPLETE AP PELVIS EXAM: XR HIP LT COMPLETE AP PELVIS CLINICAL HISTORY: LT HIP PAIN, M25.552. TECHNIQUE: 2D digital imaging was performed of the left hip. Two views were obtained. AP pelvis an d lateral left hip views were obtained. COMPARISON: CR XR HIP LT COMPLETE AP PELVIS from 10/28/2020 FINDINGS: BONES: No acute fracture is present. No bony destructive lesion is seen. JOINTS: No dislocation present. The joint spaces are well maintained. SOFT TISSUE: Normal. IMPRESSION: No acute abnormality. DATA REPOSITORY: RADIATION DOSE DELIVERED:
--- NOTE | 2024-03-02 | DI.RAD_ITS ---
Exam(s) XR KNEE LT 3V AP,LAT,JAMIE EXAM: XR KNEE LT 3V AP,LAT,JAMIE CLINICAL HISTORY: LT KNEE PAIN, M25.562. TECHNIQUE: 2D digital imaging was performed of the left knee. Three images were obtained. AP, late ral and PA tunnel views were obtained. COMPARISON: CR XR KNEE LT 3V AP,LAT,JAMIE from 12/11/2021 FINDINGS: BONES: No acute fracture is present. No bony destructive lesion is seen. There is an enthesophyte at the anterior patella. JOINTS: The knee is normally aligned. No joint effusion is seen. No loose body. SOFT TISSUE: Normal. IMPRESSION: No acute abnormality. DATA REPOSITORY: RADIATION DOSE DELIVERED:
== END 2024-03-02 00:57 ==
LOC: DI 00:41
PROVIDERS: PCP Nurse Practitioner Family; Visit Provider Nurse Practitioner Family
DX: M25.552 Pain in left hip (principal); M17.12 Unilateral primary osteoarthritis, left knee
CPT/HCPCS: 73562; 73502

== ENCOUNTER 2024-03-07 10:24 | Outpatient (CLI) | payer MEDICARE, SELFPAY ==
--- NOTE | 2024-03-07 13:08 | DI.RAD_ITS ---
Exam(s) XR KNEE RT 3V AP,LAT,JAMIE EXAM: XR KNEE RT 3V AP,LAT,JAMIE CLINICAL HISTORY: RT KNEE PAIN, M25.561. TECHNIQUE: 2D digital imaging was performed of the right knee. Three views obtained. AP, lateral an d PA tunnel views were obtained. COMPARISON: CR XR KNEE RT 3V AP,LAT,JAMIE from 12/11/2021 FINDINGS: BONES: No acute fracture is present. No bony destructive lesion is seen. JOINTS: There osteophytes seen in the medial femoral tibial joint. There is also small osteophytes s een at the posterior patella. The joint spaces are otherwise well maintained. No joint effusion is seen. SOFT TISSUE: Soft tissue swelling anterior to the patella. IMPRESSION: 1. Mild degenerative changes of the right knee. 2. Soft tissue swelling anterior to the patella. DATA REPOSITORY: RADIATION DOSE DELIVERED:
== END 2024-03-07 10:44 ==
LOC: DI 10:25
PROVIDERS: PCP Nurse Practitioner Family; Visit Provider Nurse Practitioner Family
DX: M17.11 Unilateral primary osteoarthritis, right knee (principal)
CPT/HCPCS: 73562

== ENCOUNTER → 2024-05-01 11:08 | Outpatient (BNVA) | payer MEDICARE, SELFPAY | PROVIDERS: PCP Nurse Practitioner Family; Referring Provider Nurse Practitioner Family; Visit Provider Podiatrist | DX: M25.572 Pain in left ankle and joints of left foot | CPT/HCPCS: 20600; 99213; J0702; J1100 ==

== ENCOUNTER 2024-11-08 01:20 | Outpatient (CLI) | payer MEDICARE, SELFPAY ==
--- NOTE | 2024-11-08 | DI.MAMMO_ITS ---
Exam(s) MAMMO SCREENING EXAM: MAMMO SCREENING CLINICAL HISTORY: SCREENING MAMMO, Z12.31 TECHNIQUE: Bilateral full field digital CC and MLO mammographic images were obtained with 3D tomosyn thesis and utilizing computer aided detection (CAD). COMPARISON: Available for comparison. FINDINGS: Masses/Architectural Distortion: No suspicious masses or areas of architectural distortion are presen t. Microcalcifications: No suspicious pleomorphic-type are seen. Skin Thickening/Nipple Retraction: None. IMPRESSION: 1. No significant interval change with no specific features of malignancy noted. 2. Unless there is more urgent need, screening mammography is recommended, as per [employer] guidelines. BI-RADS Category 1 - Negative Breast Density - Category B - Scattered areas of fibroglandular density Breast density category C or D implies that the patient has dense breast tissue. Dense breast tissue is very common and is not abnormal but dense breast tissue can make it harder to find cancer on a ma mmogram. Also, dense breast tissue may increase their breast cancer risk. This information about the result of the mammogram report was provided to the patient to raise their awareness. Use this report when you speak with the patient about their risks for breast cancer, which includes their family hist ory. At that time, you may recommend for more screening tests (Ultrasound or MRI) as they might be us eful based on their risk. A negative radiographic report should not delay biopsy if a dominant or clinically suspicious mass is present. Up to ten percent of cancers are not identified on mammography. A negative report may reinforce clinical impression. Adenosis and dense breasts may obscure an underlying neoplasm. False positive reports average 6 to 10%. Patient will receive a letter notifying them of these results.
--- NOTE | 2024-11-08 | DI.US_ITS ---
Exam(s) US THYROID EXAM: US THYROID CLINICAL HISTORY: NON TOXIC MULTINODULAR GOITER, E04.2. TECHNIQUE: Ultrasound thyroid performed using standard protocol. COMPARISON: US US THYROID from 05/25/2021 FINDINGS: ISTHMUS: 2.9 mm RIGHT LOBE: Size: 2.7 x 2.4 x 1.5 cm Echogenicity: Normal. Vascularity: Normal. Nodules: There is again seen a 0.6 x 0.6 x 0.6 cm solid hypoechoic nodule in the lateral aspect of th e midpole of the right lobe. It is consistent with a TI rads level 4 nodule. No follow-up is recomm ended. There is also a 0.4 x 0.5 x 0.5 cm solid isoechoic nodule in the medial aspect of the right l obe. This is unchanged. It is consistent with a TI rads level 3 nodule. Due to its size, no follow -up is recommended. LEFT LOBE: Size: 3.6 x 1.7 x 1.5 cm Echogenicity: Normal. Vascularity: Normal. Nodules: There is again seen a 0.5 x 0.4 x 0.6 cm isoechoic solid nodule in the lateral aspect of the midpole of the left thyroid gland. It is well-circumscribed with out echogenic foci. It is consist ent with a TI rads level 3 nodule. Due to its size no follow-up is recommended. OTHER FINDINGS: None. IMPRESSION: No thyroid nodules are seen that warrant follow-up or biopsy. DATA REPOSITORY:
== END 2024-11-08 01:40 ==
PROVIDERS: PCP Nurse Practitioner Family; Visit Provider Nurse Practitioner Family
DX: Z12.31 Encounter for screening mammogram for malignant neoplasm of breast (principal); E04.2 Nontoxic multinodular goiter
CPT/HCPCS: 77063; 77067; 76536

== ENCOUNTER 2025-02-14 14:32 | Outpatient (CLI) | payer MEDICARE, SELFPAY ==
--- NOTE | 2025-02-14 | DI.RAD_ITS ---
Exam(s) XR HIP RT COMPLETE AP PELVIS EXAM: XR HIP RT COMPLETE AP PELVIS CLINICAL HISTORY: PAIN RT HIP M25.551. TECHNIQUE: 2D digital imaging was performed. Two views COMPARISON: CR XR HIP LT COMPLETE AP PELVIS from 03/02/2024 FINDINGS: BONES: No acute fracture is present. No bony destructive lesion is seen. JOINTS: No dislocation present. The hip joint spaces are maintained. There is minimal acetabular spurring bilaterally. There are mild degenerative changes of the inferior SI joints as well as pubic symphysis. SOFT TISSUE: Normal. IMPRESSION: Minimal degenerative changes of the hips. DATA REPOSITORY: RADIATION DOSE DELIVERED:
== END 2025-02-14 14:52 ==
PROVIDERS: PCP Nurse Practitioner Family; Visit Provider Nurse Practitioner Family
DX: M25.551 Pain in right hip (principal)
CPT/HCPCS: 73502

== ENCOUNTER → 2025-03-05 09:00 | Outpatient (BNVA) | payer MEDICARE, SELFPAY | PROVIDERS: PCP Nurse Practitioner Family; Referring Provider Nurse Practitioner Family; Visit Provider Physician Assistant | DX: M22.2X1 Patellofemoral disorders, right knee (principal); M22.2X2 Patellofemoral disorders, left knee; M23.91 Unspecified internal derangement of right knee; M70.61 Trochanteric bursitis, right hip | CPT/HCPCS: 99213 ==

== ENCOUNTER 2025-03-22 13:28 | Outpatient (REF) | payer MEDICARE, SELFPAY ==
[2025-03-22 14:13] LABS: HCT 42.9 % (36.0-46.0); HGB 14.2 g/dL (11.2-15.7); MCH 29.0 pg (27.0-33.0); MCHC 33.1 % (32.0-36.0); MCV 88 fL (80-95); MPV 10.9 fL (8.0-11.0); Platelet Count 230 10^3/uL (130-400); RBC 4.89 10^6/uL (3.93-5.22); RDW 13.3 % (11.7-14.6); RDW-SD 42.6 fL; WBC 5.17 10^3/uL (4.4-10.8)
[2025-03-22 14:31] LABS: Hemoglobin A1C 5.4 % (<5.7)
[2025-03-22 14:43] LABS: ALT 24 U/L (14-59); AST 19 U/L (15-37); Albumin 3.7 g/dL (3.4-5.0); Alkaline Phosphatase 83 U/L (46-116); Anion Gap 8.8 mmol/L (3-11); BUN 19 mg/dL (7-18); Bilirubin, Total 0.4 mg/dL (0.2-1.0); CO2 27.2 mmol/L (21.0-32.0); Calcium 9.1 mg/dL (8.5-10.1); Calculated LDL 156 mg/dL (<100); Chloride 105 mmol/L (98-107); Cholesterol 245 mg/dL (<200); Estimated GFR 93.56 (mL/min/1.73m2); Glucose 99 mg/dL (74-106); HDL Cholesterol 69 mg/dL (>or=50); Potassium 4.8 mmol/L (3.5-5.1); Sodium 141 mmol/L (136-145); Total Protein 6.4 g/dL (6.4-8.2); Triglyceride 102 mg/dL (<150); Vitamin D 25 Total 32 ng/mL (30-100)
== END 2025-03-22 13:29 | disposition home or self-care (01) ==
LOC: NCHCN 13:28
PROVIDERS: PCP Nurse Practitioner Family; Visit Provider Nurse Practitioner Family
DX: E78.41 Elevated Lipoprotein(a) (principal); Z13.220 Encounter for screening for lipoid disorders; E83.52 Hypercalcemia; E66.3 Overweight
CPT/HCPCS: 80053; 80061; 82306; 83695; 85027; 83036

== ENCOUNTER 2025-04-11 01:30 | Outpatient (CLI) | payer MEDICARE, SELFPAY ==
--- NOTE | 2025-04-11 | DI.DEXA_ITS ---
Exam(s) XR DEXA BONE DENSITY W/WO TONY EXAM: XR DEXA BONE DENSITY W/WO TONY CLINICAL HISTORY: ASYMPTOMATIC MENOPAUSAL STATE Z78.0 TECHNIQUE: [employer] C densitometer analysis of left hip, lumbar spine and left forearm. Lateral survey image of the thoracic and lumbar spine. COMPARISON: DX DEXA BONE DENSITY WITH TONY from 02/03/2016 CR XR HIP LT COMPLETE AP PELVIS from 10/28/2020 FINDINGS: Lateral view of the thoracic and lumbar spine shows no evidence of compression fractures. Bone mineral density measurements of the lumbar spine correspond to a total T- score of 0.3, in the normal range. This represents a 4.4 percent decrease when compared with 2016. Bone mineral density measurements of the left hip correspond to a total T-score of -0.3. This represents a 9.2 percent decrease from 2016.. The femoral neck T-score is -0.4, in the normal range. Theleft forearm bone mineral density measurements correspond to a T-score of the distal 3rd of -0.1, in the normal range. This represents a 14.3 percent decrease from 2016.. IMPRESSION: Normal bone mineral density. Decreased bone density when compared with prior exam.
== END 2025-04-11 01:50 ==
LOC: DI 01:30
PROVIDERS: PCP Nurse Practitioner Family; Visit Provider Nurse Practitioner Family
DX: Z13.820 Encounter for screening for osteoporosis (principal); Z78.0 Asymptomatic menopausal state
CPT/HCPCS: 77080

== ENCOUNTER 2025-04-19 09:41 | Outpatient (CLI) | payer MEDICARE, SELFPAY ==
--- NOTE | 2025-04-19 09:43 | DI.RAD_ITS ---
Exam(s) XR KNEE LT 4V AP,LAT,JAMIE,PAT EXAM: XR KNEE LT 4V AP,LAT,JAMIE,PAT CLINICAL HISTORY: LEFT KNEE PAIN. TECHNIQUE: 2D digital imaging was performed. COMPARISON: CR XR KNEE LT 3V AP,LAT,JAMIE from 03/02/2024 CR XR KNEE RT 3V AP,LAT,JAMIE from 03/07/2024 FINDINGS: Four views No evidence of acute fracture. Small amount of increased joint fluid noted. There is abnormal soft tissue swelling anterior to the patella and distal quadriceps as well as abnormal density-probable edema anterior to the entire length of the patellar ligament and extending caudally anterior to the tibia. There is no radiopaque foreign body. There are mild degenerative changes in the medial compartment. Lateral compartment unremarkable. Patellofemoral compartment appears unremarkable. No patellar displacement. No loose bodies in the joint space. IMPRESSION: Mild degenerative changes in the medial compartment. Small joint effusion. Abnormal soft tissue swelling anterior to the distal quadriceps, patella, and entire length of the patellar ligament. There is no radiopaque foreign body. DATA REPOSITORY: RADIATION DOSE DELIVERED:
== END 2025-04-19 09:42 | disposition home or self-care (01) ==
LOC: DIORS 09:41
PROVIDERS: PCP Nurse Practitioner Family; Referring Provider Nurse Practitioner Family; Visit Provider Physician Assistant
DX: M22.2X1 Patellofemoral disorders, right knee (principal); M22.2X2 Patellofemoral disorders, left knee; S80.02XA Contusion of left knee, initial encounter; W19.XXXA Unspecified fall, initial encounter
CPT/HCPCS: 99213; 73564

== ENCOUNTER → 2025-05-23 01:53 | Outpatient (CLI) | payer MEDICARE, SELFPAY ==
--- NOTE | 2025-05-23 07:00 | DI.MRI_ITS ---
Exam(s) MR LOWER JOINT LT WO EXAM: MR LOWER JOINT LT WO CLINICAL HISTORY: PAIN,contusion lt patella,s80.02xa. TECHNIQUE: Multiplanar multisequence MRI was performed. COMPARISON: CR XR KNEE LT 4V AP,LAT,JAMIE,PAT from 04/19/2025 FINDINGS: BONES: There is marrow edema seen in the patella. There is some irregularity of the cortex on the articular surface of the patella (series [id number] images 34 through 36. This may represent a fracture. JOINTS: There is marked thinning of the articular cartilage overlying the patella. There is a small effusion present. TENDONS: Extensor mechanism: Unremarkable. Medial retinaculum: Unremarkable. Lateral retinaculum: Unremarkable. Popliteus: Unremarkable. MUSCLES: Unremarkable. MENISCI: There is degenerative signal seen within the menisci. No evidence of a meniscal tear is seen. The lateral meniscus is unremarkable. SOFT TISSUES: There is mild edema in the soft tissues anterior to the extensor tendon mechanism. LIGAMENTS: Anterior Cruciate: Unremarkable. Posterior Cruciate: Unremarkable. Medial Collateral:Unremarkable. Lateral Collateral: Unremarkable. OTHER: There is a popliteal cyst present. IMPRESSION: 1. Irregularity of the cortex on the posterior aspect of the patella suspicious for nondisplaced fracture. 2. Small joint effusion. 3. No evidence of a meniscal or ligament tear. 4. Popliteal cyst. 5. Edema in the soft tissues anterior to the extensor mechanism. DATA REPOSITORY:
== END ==
LOC: DI 01:53
PROVIDERS: PCP Nurse Practitioner Family; Visit Provider Student in an Organized Health Care Education/Training Program
DX: S80.02XA Contusion of left knee, initial encounter (principal); M71.22 Synovial cyst of popliteal space [Baker], left knee
CPT/HCPCS: 73721

== ENCOUNTER → 2025-05-29 09:30 | Outpatient (BNVA) | payer MEDICARE, SELFPAY | PROVIDERS: PCP Nurse Practitioner Family; Referring Provider Nurse Practitioner Family; Visit Provider Student in an Organized Health Care Education/Training Program | DX: M22.2X1 Patellofemoral disorders, right knee (principal); M22.2X2 Patellofemoral disorders, left knee; M22.42 Chondromalacia patellae, left knee | CPT/HCPCS: 99214 ==